=== PATIENT | female | born 1985 | race Caucasian/White ===

== ENCOUNTER → 2021-01-22 12:34 | Outpatient (CLI) | payer BC, SELFPAY ==
--- NOTE | 2021-01-21 | ASPS_PTH ---
PATIENT: MIKAEL BRENNAN LOC: [facility] U#:[id number] AGE/SX: 40/F ROOM: RE01/22/[address]: Dr. Kasey Peters MD : 1985 BED: DIS: SPEC #: [id number] RECD: 01/22/21 12:15 STATUS: TALIA RE #: [id number] RENITA: 01/21/21 00:[address]: Terry Paiz DEPT: CYTOLOGY RECD BY: Meghna Santiago ENTERED: 01/22/21 13:22 SP TYPE: ASPIRATION OTHR DR: Dr. Kasey Peters MD Tissues: Thyroid gland, NOS Procedures: Special Stain Group II Cytology Other Comments: @ Ordering doctor for SSII edited from to DR.DPEABO Delgado by DARRYL at 01/22/21 1351 @ Ordering doctor for CYOTHER edited from to DR.DPEABO Delgado by DARRYL at 01/22/21 1351 @ Submitting doctor edited from to DR.DPEABO Delgado by DARRYL at 01/22/21 1351 HEADER OPERATION: Ultrasound-guided fine needle aspiration right thyroid PRE-OP DIAGNOSIS: Thyroid nodules TISSUE SUBMITTED: Right thyroid FNA slides x12 DIAGNOSIS CYTOLOGY Right thyroid nodule, ultrasound-guided FNA (smears): Consistent with benign follicular/colloid nodule. Adequate for evaluation. See comment. KANDIS:cindy 01/23/2021 COMMENT Correlation with clinical, radiologic findings and appropriate follow up are necessary. Case has been reviewed in consultation with Dr. Cardoso who concurs with the above diagnosis. IDC:AM CYTOLOGY STUDY Slides are reviewed. CYTOLOGY GROSS Received are 12 smears labeled with the patient's name and designated per the requisition as right thyroid. Submitted for staining. / cindy 01/22/2021 TC:5 CPT: 76947
== END ==
PROVIDERS: PCP Internal Medicine; Visit Provider Internal Medicine
DX: E04.1 Nontoxic single thyroid nodule (principal)
CPT/HCPCS: 88161; 88313

== ENCOUNTER → 2023-06-09 | Outpatient (CLI) | payer BC, SELFPAY ==
[2023-06-14 05:06] LABS: Chlamydia By Nucleic Acid AMP Negative (Negative); Gonococcus By Nucleic Acid AMP Negative (Negative)
== END | disposition home or self-care (01) ==
LOC: LABSPEC 15:29
PROVIDERS: PCP Internal Medicine; Referring Provider Obstetrics & Gynecology; Visit Provider Obstetrics & Gynecology
DX: N89.8 Other specified noninflammatory disorders of vagina (principal); Z11.3 Encounter for screening for infections with a predominantly sexual mode of transmission; R30.0 Dysuria
CPT/HCPCS: 87070; 87086; 87088; 87186; 87205; 87491; 87591

== ENCOUNTER → 2024-11-27 | Outpatient (CLI) | payer BC, SELFPAY | END | disposition home or self-care (01) | LOC: LABSPEC 16:08 | PROVIDERS: PCP Internal Medicine; Referring Provider Obstetrics & Gynecology; Visit Provider Obstetrics & Gynecology | DX: N76.0 Acute vaginitis (principal) | CPT/HCPCS: 87070; 87077; 87205 ==